=== PATIENT | male | born 1955 | race Caucasian/White ===

== ENCOUNTER 2018-10-21 19:19 | Observation (INO) | payer OTHER ==
[~2018-10-21] VITALS: Ht 175.3 cm; Wt 96.5 kg
[2018-10-21] MEDS ORDERED: ASPIRIN 81 MG TABLET CHEW PO ONE (19:30)
[2018-10-21 19:57] LABS: MEAN CORPUSCULAR HEMOGLOBIN 32.2 pg (27.5-34.5); MEAN CORPUSCULAR HGB CONC 34.3 g/dL (33.2-36.2); MEAN CORPUSCULAR VOLUME 93.8 fL (81-97); MEAN PLATELET VOLUME 9.4 fL (7.4-10.4); PLATELET COUNT 192 x10^3/uL (130-400); RED BLOOD COUNT 5.09 x10^6/uL (4.38-5.82); RED CELL DISTRIBUTION WIDTH 13.2 % (9.4-14.8)
[2018-10-21 20:02] LABS: ALANINE AMINOTRANSFERASE 33 U/L (12-78); ANION GAP 4 mmol/L (5-15); CALCIUM 8.3 mg/dL (8.5-10.1); CHLORIDE 105 mmol/L (98-107); CREATININE 1.07 mg/dL (0.7-1.3)
[2018-10-21 20:06] LABS: ALKALINE PHOSPHATASE 50 U/L (45-117); BILIRUBIN,TOTAL 0.5 mg/dL (0.2-1.0); TROPONIN I < 0.015 ng/mL (0.000-0.045)
--- NOTE | 2018-10-21 20:06 | NUR ---
PT PRESENTS TO ED WITH C/O INTERMITTENT LEFT SIDED CP STARTING 3 DAYS AGO. PT REPORTS SOB WITH EXERTION, AND STATES CP IS ALSO EXACERBATED BY EXERTION. PT ATTACHED TO ALL MONTIORS. EKG COMPLETED IN TRIAGE. PT REPORTS PAIN LEVEL 2/10 AT THIS TIME. PT DENIES VOMITING/DIARRHEA/DYSURIA/FEVERS. PT HAS HX CLL, HYPERLIPIDEMIA AND HTN. CALL LIGHT IN REACH. AWAITING LAB AND REPEAT EKG RESULTS.
--- NOTE | 2018-10-21 20:20 | NUR ---
repeat EKG taken by this RN, reviewed by OCNRADO Lopez.
[2018-10-21 20:21] LABS: MD YES
[2018-10-21 20:23] LABS: LYMPH#(MANUAL) 22.27 x10^3/uL (1-3.4); LYMPHS% (MANUAL) 86 % (22-44); MONOS#(MANUAL) 0.52 x10^3/uL (0.3-2.7); MONOS% (MANUAL) 2 % (2-9); SEG#(MANUAL) 3.11 x10^3/uL (1.8-6.8); SEGS% (MANUAL) 12 % (42-75)
[2018-10-21 20:24] LABS: <RBC MORPHOLOGY> NORMAL; SMUDGE CELLS 2+
[2018-10-21 20:26] LABS: <PLATELET ESTIMATE> ADEQUATE; <PLT MORPHOLOGY> NORMAL PLT MORPH
[2018-10-21] MEDS ORDERED: SODIUM CHLORIDE FLUSH 10ML SYR IVF PRN (21:00)
[2018-10-21] MEDS ORDERED: ASPI81TA50 PO (21:20)
[2018-10-21] MEDS ORDERED: OLME1TAB40 PO (21:25)
[2018-10-21] MEDS ORDERED: ROSU10TA PO (21:25)
[2018-10-21] MEDS ORDERED: proair INH (21:25)
[2018-10-21] MEDS ORDERED: SERT25TA3 PO (21:25)
--- NOTE | 2018-10-21 21:25 | NUR ---
pt eating food brought from family, cardiac diet compliant. pt and family updated with POC, awaiting cardiac tele bed assignment and transport at this time. piv placed. pt a&o, resps even and unlabored, nsr on management consultant. cp level 2/10 at this time.
[2018-10-21] MEDS ORDERED: NITROGLYCERIN SINGLE TAB 0.4 MG SL ONE (21:29)
[2018-10-21] MEDS ORDERED: ASPIRIN 81 MG TABLET CHEW ONE (21:29)
[2018-10-21] MEDS: NITROGLYCERIN SINGLE TAB 0.4 MG SL PRN ×3 (21:32→21:44)
--- NOTE | 2018-10-21 21:35 | NUR ---
pt medicated per emar, tolerated well. pt reports CP unchanged s/p first dose nitro.
--- NOTE | 2018-10-21 21:46 | NUR ---
nitro doses given x 3. pt reports improvement of CP from 2/10 to 1/10 at this time. pt a&o, resps even and unlabored, nsr on director of cardiac cath lab. call light in reach. family at bedside.
--- NOTE | 2018-10-21 21:52 | NUR ---
REPORT CALLED TO RECEIVING KARTHIKEYAN SINGH PT AWAITING TRANSPORT TO CARDIAC TELE ROOM [id number].
[2018-10-21 22:05] VITALS: BP 122/70
[2018-10-21 22:29] VITALS: BP 122/70
[2018-10-21] MEDS ORDERED: DOCUSATE 100 MG CAPSULE PO PRN (23:30)
[2018-10-21] MEDS ORDERED: NITROGLYCERIN 0.4 MG BOTTLE (25 TABS) SL PRN (23:30)
[2018-10-21] MEDS ORDERED: TEMAZEPAM 15 MG CAPSULE PO PRN (23:30)
[2018-10-21] MEDS ORDERED: ENALAPRILAT 1.25 MG/ML, 2ML IVPush PRN (23:30)
[2018-10-21] MEDS ORDERED: ONDANSETRON ODT 4 MG PO PRN (23:30)
[2018-10-21] MEDS ORDERED: LIDODERM 5% PATCH TD PRN (23:30)
[2018-10-22] MEDS ORDERED: ATORVASTATIN 20 MG TABLET PO SCH
[2018-10-22] MEDS: ACETAMINOPHEN 325 MG TABLET PO PRN ×2 (00:01→08:18)
[2018-10-22] MEDS: HEPARIN 5,000 UNITS/ML, 1ML SQ SCH ×3 (00:01→15:30)
[2018-10-22 01:42] VITALS: BP 128/56
[2018-10-22 04:33] LABS: ANION GAP 4 mmol/L (5-15); CALCIUM 8.1 mg/dL (8.5-10.1); CHLORIDE 109 mmol/L (98-107); CREATININE 0.89 mg/dL (0.7-1.3)
[2018-10-22 04:36] LABS: TROPONIN I < 0.015 ng/mL (0.000-0.045)
[2018-10-22 04:41] LABS: MEAN CORPUSCULAR HEMOGLOBIN 31.8 pg (27.5-34.5); MEAN CORPUSCULAR HGB CONC 33.5 g/dL (33.2-36.2); MEAN CORPUSCULAR VOLUME 94.7 fL (81-97); MEAN PLATELET VOLUME 9.1 fL (7.4-10.4); PLATELET COUNT 147 x10^3/uL (130-400); RED BLOOD COUNT 4.75 x10^6/uL (4.38-5.82); RED CELL DISTRIBUTION WIDTH 13.3 % (9.4-14.8)
[2018-10-22 05:10] LABS: BASOPHILS # (AUTO) 0.07 x10^3/uL (0-0.1); BASOPHILS % (AUTO) 0 % (0-1); EOSINOPHILS # (AUTO) 0.23 x10^3/uL (0-0.4); EOSINOPHILS % (AUTO) 1 % (1-7); LYMPHOCYTES # (AUTO) 14.85 x10^3/uL (1-3.4); LYMPHOCYTES % (AUTO) 81 % (22-44); MD SCAN; MONOCYTES # (AUTO) 0.34 x10^3/uL (0.2-0.8); MONOCYTES % (AUTO) 2 % (2-9); NEUTROPHILS # (AUTO) 2.82 x10^3/uL (1.8-6.8); NEUTROPHILS % (AUTO) 15 % (42-75)
[2018-10-22] MEDS ORDERED: ASPIRIN 81 MG TABLET EC PO SCH (06:00)
[2018-10-22 06:50] VITALS: BP 119/72
[2018-10-22] MEDS ORDERED: REGADENOSON 0.4 MG/5 ML SYRINGE ONE (08:30)
[2018-10-22] MEDS ORDERED: HYDROCHLOROTHIAZIDE 12.5 MG CAPSULE PO SCH (09:00)
[2018-10-22] MEDS ORDERED: LOSARTAN 50MG TABLET PO SCH (09:00)
[2018-10-22] MEDS ORDERED: SERTRALINE 50MG TABLET PO SCH (09:00)
[2018-10-22 10:13] LABS: TROPONIN I < 0.015 ng/mL (0.000-0.045)
[2018-10-22 14:29] VITALS: BP 125/75
== END 2018-10-22 17:15 | disposition home or self-care (01) ==
LOC: ED 20:50 → EDIP 20:57 → UNDOADMOB 20:57 → INTOOBSV 20:57 → ED 21:11 → 5SO 22:04 → EDIP 22:04 → 5SO 23:25 → EDIP 23:25 → UNDODISOB 10-22 17:15
PROVIDERS: ADMIT Internal Medicine; ATTEND Internal Medicine
DX: R07.89 Other chest pain (principal); I10 Essential (primary) hypertension; E78.5 Hyperlipidemia, unspecified; C91.10 Chronic lymphocytic leukemia of B-cell type not having achieved remission; Z80.0 Family history of malignant neoplasm of digestive organs; Z82.49 Family history of ischemic heart disease and other diseases of the circulatory system
CPT/HCPCS: 36415; 71045; 76700; 78452; 80048; 80053; 83880; 84484; 85025; 93005; 93017; 96372; 99284; A9502; C9898; G0378; J1644; J2785; 99285

== ENCOUNTER → 2019-08-05 | Outpatient (CLI) | payer OTHER ==
[~2019-08-05] MED LIST: ASPI81TA50 PO; OLME1TAB40 PO; OMNIPAQUE 350 MG/ML, 150 ML BOTTLE ONE; ROSU10TA2 PO; SERT25TA3 PO; proair INH
== END | disposition home or self-care (01) ==
LOC: CFH 11:42
PROVIDERS: ATTEND Internal Medicine Hematology & Oncology
DX: C91.10 Chronic lymphocytic leukemia of B-cell type not having achieved remission (principal); M47.812 Spondylosis without myelopathy or radiculopathy, cervical region; N40.0 Benign prostatic hyperplasia without lower urinary tract symptoms; M47.814 Spondylosis without myelopathy or radiculopathy, thoracic region; M47.816 Spondylosis without myelopathy or radiculopathy, lumbar region; R59.1 Generalized enlarged lymph nodes; M16.0 Bilateral primary osteoarthritis of hip
CPT/HCPCS: 70491; 71260; 74177; Q9967